=== PATIENT | male | born 1990 | race Caucasian/White ===

== ENCOUNTER 2023-10-31 02:12 | Emergency (ER) | payer OTHER ==
[2023-10-31 02:29] VITALS: BP 127/73; PULSE 89; RESP 20; TEMP 100.7; BMI 26.4
== END 2023-10-31 05:07 | disposition left against medical advice (07) ==
LOC: JER 02:12
DX: R50.9 Fever, unspecified (principal); J02.9 Acute pharyngitis, unspecified; Z53.21 Procedure and treatment not carried out due to patient leaving prior to being seen by health care provider
CPT/HCPCS: 99281-25